=== PATIENT | male | born 1980 | race Caucasian/White ===

== ENCOUNTER 2020-12-27 11:04 | Day surgery (SDC) | payer BC ==
[2020-12-25 17:04] VITALS: BMI 26.2
[2020-12-27] MEDS ORDERED: PROPOFOL 20 ML ONE ×2 (13:17)
[2020-12-27] MEDS ORDERED: MIDAZOLAM HCL 2 MG/2 ML SINGLE DOSE VIAL ONE (13:18)
[2020-12-27] MEDS ORDERED: LIDOCAINE HCL/PF 2% SDV 5ML VIAL ONE (13:19)
[2020-12-27 14:32] VITALS: TEMP 98.2
[2020-12-27 14:59] VITALS: BP 120/74; PULSE 60
[2020-12-27] MEDS ORDERED: ACETAMINOPHEN 325 MG TABLET (FP) PO PRN (15:42)
[2020-12-27] MEDS ORDERED: ONDANSETRON 4 MG/2 ML VIAL IVPUSH PRN (15:42)
[2020-12-27] MEDS ORDERED: LACTATED RINGERS SOLUTION 1,000 ML IV SCH (15:45)
== END 2020-12-27 15:01 | disposition home or self-care (01) ==
LOC: FASU 11:04
PROVIDERS: ATTEND Orthopaedic Surgery Hand Surgery
PROC: 0LC80ZZ Extirpation of Matter from Left Hand Tendon, Open Approach (ICD-10-PCS; principal; 2020-12-27 13:54)
DX: M79.5 Residual foreign body in soft tissue (principal); L85.9 Epidermal thickening, unspecified; R23.4 Changes in skin texture; W45.8XXA Other foreign body or object entering through skin, initial encounter; Y93.9 Activity, unspecified; Y92.9 Unspecified place or not applicable